=== PATIENT | male | born 1975 | race Caucasian/White ===

== ENCOUNTER 2024-11-02 08:48 | Emergency (ER) | payer OTHER, MEDICAID, SELFPAY ==
[2024-11-02 08:49] VITALS: BP 128/86; PULSE 82; RESP 15; TEMP 36.7; O2SAT 98; BMI 23.6
--- NOTE | 2024-11-02 08:56 | ED.RN ---
PT WAS AT WORK AND ACCIDENTLY CUT HIS FINGER ON PRUNING ZACK WHILE TRYING TO CUT THE STRING. PT STATES HE HAS HAD A TETANUS SHOT WITHIN THE LAST 5 YEARS
--- NOTE | 2024-11-02 09:01 | EX.ED.UPPERE ---
HPI History of Present Illness HPI Narrative: 49-year-old male left hand dominant. At work today less than an hour ago lacerated his right ring finger on pruning patrick. Tetanus up-to-date within the last couple years. Denies any other complaints. Chief Complaint: Laceration Informant: patient Occured/Mechanism Mechanism/Context: Yes injury Onset/Context/Timing Onset: Today Context: Sudden Onset Timing: Continuous Quality of Pain: Sharp Current Severity: Mild Maximum Severity: Mild Associated Symptoms Associated Symptoms: Negative for Parasthesia, Weakness or Loss of Funtion Narrative Narrative: 49-year-old male left hand dominant laceration to his right ring finger at work today less than 1 hour ago. Tetanus up-to-date. Prior injury to his right hand before to his long finger. Tetanus Immunization: <5 years Prior similar symptoms: No Recent Illness/Hospitalization: No PFSH PFSH Allergy/AdvReac Type Severity Reaction Status Date / Time No Known Allergies Allergy Verified 11/02/24 08:51 Social History Smoking Status: Current every day smoker tobacco type: e-cigarettes ROS ROS ED ROS Narrative Denies recent illness. Constitutional Constitutional ED: Denies chills or fever(s) Eyes Eyes: Denies blurry vision ENT ENT ED: Denies ear pain Cardiovascular Cardiovascular: Denies chest pain Respiratory/Chest Respiratory/Chest: Denies cough or dyspnea Gastrointestinal Gastrointestinal: Denies abdominal pain Genitourinary Genitourinary ED: Denies dysuria or hematuria Musculoskeletal Musculoskeletal: Denies back pain Integumentary Denies abscess Neurologic Neurologic: Denies headache(s) Psychiatric Psychiatric: Denies anxiety or depression Endocrine Endocrinology: Denies cold intolerance Hematologic/Lymphatic Hematologic/Lymphatic: Denies easy bleeding or easy bruising Allergic/Immunologic Allergic/Immunologic ED: Denies mouth swelling or tongue swelling EXAM Physical Exam Narrative Exam Narrative: Nurse informed me that patient 49-year-old male no acute distress vital signs stable afebrile. H EENT exam pupils round react to light. Normal speech. Lungs clear to auscultation. Heart regular rhythm rate about 80 no murmur. Chest wall ribs nontender. Abdomen soft nontender. Moving all 4 extremities. Neurovascularly intact. Specifically the right hand ring finger there is a linear laceration parallel to the long axis of the ring finger from the tip down to the palmar side ends prior to the DIP. He has full flexion extension of that digit. Normal touch sensation. There is a deformity of the right long finger from a prior injury and surgical repair. Patient is awake and alert. No focal motor or sensory deficits. Const Vital Signs: 11/02/24 08:49 Temperature 98.1 F Temperature Source Temporal Pulse Rate 82 Respiratory Rate 15 Blood Pressure 128/86 H Blood Pressure Mean 100 Pulse Ox 98 Oxygen Delivery Method Room Air Positive well nourished and well developed; Negative for obese, cachectic, contractures or unkempt General Appearance ED: well developed and NAD; Negative for unkempt, cachectic, contractures, cyanotic or diaphoretic Nutritional Appearance: Negative for cachectic or obese HEENT Reports moist mucous membranes normocephalic and atraumatic Eyes PERRL and EOMs intact bilaterally Neck full ROM and supple Chest Wall inspection of chest normal and palpation of chest normal Resp normal respiratory effort and clear to auscultation bilaterally Auscultation: Negative for rales, rhonchi, wheezes or diminished lung sounds Cardio regular rate, regular rhythm, S1 normal heart sound, S2 normal heart sound and no murmurs GI non-tender, non-distended and no masses Back/Spine no CVA tenderness Extremity normal to inspection and full ROM Extremity Narrative: Except right ring finger laceration palmar aspect tip to almost the DIP. Approximately 2 inches in length. Involves the skin and subcu tissue. Hands neurovascularly intact with full range of motion normal touch sensation. No foreign body or infection. Recent wound. Neuro oriented x3, CN's II-XII intact bilaterally, moves all extremities, no focal motor deficits and no sensory deficits noted Motor Exam: strength 5/5 throughout Psych mental status grossly normal Appearance: Negative for unkempt Skin General Skin Exam: petechiae Lesions: no lesions Rashes: no rashes Trauma: laceration MDM MDM MDM Narrative Medical decision making narrative: 49-year-old male left hand dominant laceration right ring finger which only repaired. Tetanus up-to-date. Digital block. Clean. Explored. Irrigated. Closed. History & Record Review Discussion w/independent historian: Patient Procedures Lacerations Right ring finger laceration repair:: Length: 2 in Depth: Sub Q Shape: Linear Prep: Demetrio-Clefred Laceration repair: Digital block, Irrigated, Lidocaine, Nerve block, Skin sutures and Wound explored Number of Sutures/[place]: 6 Suture Information: Ethilon, Simple and 4-0 Comment: Right ring finger palmar laceration distal tip almost to the DIP. Palmar aspect. Digital block. Plain lidocaine. Cleaned with Shur-Clens. Washed and irrigated with saline. Explored. Closed using 6 simple interrupted 4-0 Ethilon sutures. Discharge Plan Triage Chief Complaint: Laceration ED Provider: Koffi Gaona Dx/Rx/DC Orders Clinical Impression: Finger laceration, Encounter related to worker's compensation claim Instructions: ED Laceration, Hand: All Closures Primary Care Provider: Dai Kenney Referrals: [facility] [Group of Physicians] - 10-14 Days suture removal Dai Kenney, [Primary Care Provider] - Activity Restrictions/Additional Instructions: Ice and elevate to decrease pain and swelling. Motrin and Tylenol for pain. Clean daily with soap and water peroxide and water. Apply antibiotic ointment. Watch for any signs of infection such as redness, swelling, fever, streaks or pus of seen return. Stitches out in 10 to 14 days. Print Language: [place]olan Disposition Disposition: Home, Self Care
[2024-11-02] MEDS: Lidocaine 1% (20 ml mdv) 20 ML Vial 10 ML INFILT (09:04)
== END 2024-11-02 10:05 | disposition home or self-care (01) ==
PROVIDERS: Emergency Provider Emergency Medicine; PCP Family Medicine; Visit Provider Emergency Medicine
DX: S61.214A Laceration without foreign body of right ring finger without damage to nail, initial encounter (principal); W26.8XXA Contact with other sharp object(s), not elsewhere classified, initial encounter; Y99.0 Civilian activity done for income or pay; F17.290 Nicotine dependence, other tobacco product, uncomplicated
CPT/HCPCS: 12001; 11760; 99283